=== PATIENT | female | born 2000 | race Caucasian/White ===

== ENCOUNTER 2024-09-08 11:59 | Inpatient (IN) | payer BC, OTHER ==
[2024-09-08 12:19] VITALS: BMI 32.1
[2024-09-08] MEDS ORDERED: hydrALAZINE 20 MG/ML VIAL SLOW IVP PRN ×2 (12:33→13:39)
[2024-09-08 12:59] LABS: Fetal Membranes Rupture RUPTURE DETECTED (No Rupture)
[2024-09-08] MEDS ORDERED: Ondansetron PF 4 MG/2 ML Vial IVP PRN (13:39)
[2024-09-08] MEDS ORDERED: Misoprostol 200 MCG TAB PR PRN (13:39)
[2024-09-08] MEDS ORDERED: fentaNYL 50 mcg/mL 1 mL Vial SLOW IVP PRN (13:39)
[2024-09-08] MEDS ORDERED: Zolpidem Tartrate 5 MG TAB PO PRN (13:39)
[2024-09-08] MEDS ORDERED: Tranexamic Acid 1,000 MG/10 ML VIAL IVP PRN (13:39)
[2024-09-08] MEDS ORDERED: Acetaminophen 500 MG TAB PO PRN (13:39)
[2024-09-08] MEDS ORDERED: Lidocaine 1% (PF) 30 ML VIAL SC PRN (13:39)
[2024-09-08] MEDS ORDERED: Diphenoxylate HCl/Atropine Tablet PO PRN ×2 (13:39)
[2024-09-08] MEDS ORDERED: Carboprost 250 MCG/ML AMP IM PRN (13:39)
[2024-09-08] MEDS ORDERED: Promethazine HCl 25 MG/ML VIAL IM PRN (13:39)
[2024-09-08] MEDS ORDERED: Methylergonovine 0.2 MG/ML VIAL IM PRN (13:39)
[2024-09-08] MEDS ORDERED: Oxytocin 30 units/NS 500 ML 500 ML IV SCH (13:45)
[2024-09-08] MEDS: Penicillin G Potassium 5 MILL.UNITS in Sodium Chloride 0.9% 100 ML IVPB SCH (13:53)
[2024-09-08] MEDS: Misoprostol 100 MCG TAB PO SCH (13:59)
[2024-09-08 14:01] LABS: Hematocrit 32.6 % (34.9-44.5); Mean Corpuscular HGB CONC 33.7 g/dL (32.0-36.0); Mean Corpuscular Hemoglobin 31.8 pg (27.0-33.0); Mean Corpuscular Volume 94.2 fL (81.6-98.3); Mean Platelet Volume 11.2 fL (7.4-10.4); Platelet Count 199 10x3/uL (150-450); RBC Distribution Width 14.2 % (11.5-14.5); Red Blood Cell (RBC) Count 3.46 10x6/uL (3.90-5.03); White Blood Cell (WBC) Count 10.07 10x3/uL (3.5-10.5)
[2024-09-08 14:33] LABS: HBsAg Index 0.25 S/CO (0-0.99); Hep B Surf Ag - L&D Non-Reactive S/CO (NonReactive)
[2024-09-08 14:35] LABS: Syphilis Antibody Nonreactive (Nonreactive); Syphilis Antibody Index 0.08 S/CO (<1.00 Non-Reactive)
[2024-09-08] MEDS: Penicillin G 2.5 MILL.units 2.5 MILL.UNITS in Premix 1 BAG IVPB SCH (17:49)
[2024-09-08] MEDS: Oxytocin 30 units/NS 500 ML 500 ML IV SCH (23:35)
[2024-09-09] MEDS ORDERED: Ondansetron PF 4 MG/2 ML Vial IVP PRN (15:15)
[2024-09-09] MEDS ORDERED: Promethazine HCl 25 MG/ML VIAL IM PRN (15:15)
[2024-09-09] MEDS ORDERED: Moisturizing Cream (Eucerin) 113 GM JAR TOP PRN (15:15)
[2024-09-09] MEDS ORDERED: ePHEDrine Sulfate 50 MG/10 ML VIAL SLOW IVP PRN (15:15)
[2024-09-09] MEDS ORDERED: Acetaminophen 325 MG TAB PO PRN (15:15)
[2024-09-09] MEDS ORDERED: Lactated Ringer's 500 ML IV PRN (15:15)
[2024-09-09] MEDS ORDERED: Naloxone HCl 0.4 mg/ml Vial IVP PRN ×2 (15:15)
[2024-09-09] MEDS ORDERED: Communication Order-Pharmacy FS SCH (15:15)
[2024-09-09] MEDS ORDERED: diphenhydrAMINE 50 MG/ML VIAL IVP PRN (15:15)
[2024-09-09] MEDS: fentaNYL 2 mcg/Ropivacaine 0.2% Epidural 100 ML CADD EPIDURAL SCH (15:44)
[2024-09-10] MEDS: Lactated Ringer's 1,000 ML IV SCH (03:20)
[2024-09-10] MEDS ORDERED: hydrALAZINE 20 MG/ML VIAL SLOW IVP PRN (04:19)
[2024-09-10] MEDS ORDERED: Preparation H Ointment 28 GM TUBE PR PRN (04:19)
[2024-09-10] MEDS ORDERED: Lanolin Ointment 7 GM TUBE TOP PRN (04:19)
[2024-09-10] MEDS ORDERED: Boostrix 0.5 ML (Tdap) VIAL (>/=7 yrs of age) IM ONE (04:19)
[2024-09-10] MEDS ORDERED: Bisacodyl 10 MG SUPP PR PRN (04:19)
[2024-09-10] MEDS ORDERED: traMADol HCl 50 MG TAB PO PRN (04:19)
[2024-09-10] MEDS ORDERED: Milk Of Magnesia 30 ML UDCUP PO PRN (04:19)
[2024-09-10] MEDS: Ibuprofen 800 MG TAB PO SCH (06:05)
[2024-09-10] MEDS: Ferrous Sulfate 325 MG TAB PO SCH (07:12)
[2024-09-10] MEDS ORDERED: Bupivacaine 0.25% HCL 30 ML VIAL ONE (08:00)
[2024-09-10] MEDS ORDERED: Bupivacaine HCl 0.5%/Epinephrine 1:200,000/PF 30 ml Vial ONE (08:00)
[2024-09-10] MEDS: Prenatal Vitamin 1 TAB PO SCH (08:06)
[2024-09-10] MEDS: Docusate 100 MG CAP PO SCH (08:06)
[2024-09-10] MEDS: Benzocaine-Menthol 82.5 ML CAN TOP PRN (08:14)
[2024-09-10] MEDS: Misoprostol 100 MCG TAB PO SCH (19:21)
[2024-09-11] MEDS: Moisturizing Cream (Eucerin) 113 GM JAR TOP PRN (02:27)
[2024-09-11 08:05] VITALS: BP 102/64; TEMP 97.5
== END 2024-09-11 15:10 | disposition home or self-care (01) | DRG 806 ==
LOC: CSHLD/OP 11:59 → CSHLD 13:10 → CSHPED 09-10 03:52
PROVIDERS: ADMIT Obstetrics & Gynecology; ATTEND Obstetrics & Gynecology
PROC: 10E0XZZ Delivery of Products of Conception, External Approach (ICD-10-PCS; principal; 2024-09-10)
PROC: 0KQM0ZZ Repair Perineum Muscle, Open Approach (ICD-10-PCS; 2024-09-10)
DX: O48.0 Post-term pregnancy (principal); D62 Acute posthemorrhagic anemia; Z37.0 Single live birth; O36.8130 Decreased fetal movements, third trimester, not applicable or unspecified; O70.1 Second degree perineal laceration during delivery; O99.02 Anemia complicating childbirth; O69.81X0 Labor and delivery complicated by cord around neck, without compression, not applicable or unspecified; Z3A.40 40 weeks gestation of pregnancy
CPT/HCPCS: 36415; 51702; 76819; 84112; 85027; 86780; 86850; 86900; 86901; 87340; 99285; J0665; J2540; J2590